=== PATIENT | female | born 1960 | race Caucasian/White ===

== ENCOUNTER 2019-04-30 09:40 | Emergency (ER) | payer MEDICAID ==
[~2019-04-30] VITALS: Ht 165.1 cm; Wt 118.0 kg
[2019-04-30] MEDS ORDERED: METOCLOPRAMIDE HCL 10MG/2ML VIAL IM ONE (11:00)
[2019-04-30] MEDS ORDERED: ACETAMINOPHEN 325MG TABLET PO ONE (11:00)
[2019-04-30 11:07] LABS: BASOPHILS % 0.8 % (0.0-2.0); EOSINOPHILS % 1.8 % (0.0-5.0); HEMATOCRIT. 42.7 % (36.0-48.0); HEMOGLOBIN. 14.7 g/dL (12.0-16.0); LYMPHOCYTES % 15.2 % (20.0-50.0); MEAN CORPUSCULAR VOLUME 95.7 fL (81.0-99.0); MEAN PLATELET VOLUME 8.4 fl (7.4-10.4); MONOCYTES % 7.1 % (2.0-8.0); NEUTROPHILS % 75.1 % (40.0-76.0); PLATELET 277 x1000/uL (130-400); RED BLOOD CELL COUNT 4.46 mill/uL (4.2-5.4); RED CELL DISTRIBUTION WIDTH 13.8 % (11.6-14.6)
[2019-04-30 11:14] LABS: CHLORIDE 108 mEq/L (98-107)
[2019-04-30 12:56] VITALS: BP 155/80
== END 2019-04-30 13:00 | disposition home or self-care (01) ==
LOC: ER 10:28
DX: R42 Dizziness and giddiness (principal); R51 Headache; R53.1 Weakness; I10 Essential (primary) hypertension; G40.909 Epilepsy, unspecified, not intractable, without status epilepticus
CPT/HCPCS: 36415; 80053; 80185; 85025; 93005; 96372; 99284; J2765

== ENCOUNTER 2024-10-16 07:10 | Emergency (ER) | payer BC, MEDICAID ==
[~2024-10-16] VITALS: Ht 162.6 cm; Wt 90.0 kg
[~2024-10-16 07:10] MED LIST: ASCO500T20 PO; ASPI-1406 PO; ATOR20TA PO; CEPH500T MT; PHEN100C4 PO
[2024-10-16 07:15] VITALS: O2SAT 100
[2024-10-16 08:00] LABS: BASOPHILS % 1.1 % (0.0-2.0); EOSINOPHILS % 3.9 % (0.0-5.0); HEMATOCRIT. 41.2 % (36.0-48.0); HEMOGLOBIN. 14.0 g/dL (12.0-16.0); LYMPHOCYTES % 28.4 % (20.0-50.0); MEAN PLATELET VOLUME 9.5 fl (7.4-10.4); MONOCYTES % 12.1 % (2.0-8.0); NEUTROPHILS % 54.5 % (40.0-76.0); PLATELET 216 x1000/uL (130-400); RED BLOOD CELL COUNT 4.34 mill/uL (4.2-5.4); RED CELL DISTRIBUTION WIDTH 13.9 % (11.6-14.6)
[2024-10-16 08:06] LABS: CREATININE 0.6 mg/dL (0.6-1.0)
[2024-10-16 08:07] LABS: ETHANOL BLOOD < 10 mg/dL (<10); PHENYTOIN 21.2 ug/mL (10-20); UREA NITROGEN BLOOD 19 mg/dL (9-23)
[2024-10-16 09:49] LABS: CLARITY URINE CLEAR (CLEAR); COLOR URINE YELLOW (YELLOW); GLUCOSE URINE NEGATIVE (NEGATIVE); KETONES URINE NEGATIVE (NEGATIVE); LEUKOCYTE ESTERASE URINE 1+ (NEGATIVE); NITRITE URINE POSITIVE (NEGATIVE); OCCULT BLOOD URINE TRACE (NEGATIVE); PH URINE 6.0 (4.5-8.0); PROTEIN URINE TRACE (NEGATIVE); SPECIFIC GRAVITY URINE 1.022 (1.005-1.030); UROBILINOGEN URINE 0.2 E.U./dL (0.2-1.0)
[2024-10-16] MEDS ORDERED: NITR100C PO (10:02)
[2024-10-16 10:04] LABS: *AMPHETAMINES SCREEN URINE NEGATIVE (NEGATIVE); *BARBITURATES SCREEN URINE NEGATIVE (NEGATIVE); *BENZODIAZEPINES SCREEN URINE NEGATIVE (NEGATIVE); *COCAINE SCREEN URINE NEGATIVE (NEGATIVE); CANNABINOID URINE SCREEN NEGATIVE (NEGATIVE); METHADONE URINE SCREEN NEGATIVE (NEGATIVE); OPIATES URINE SCREEN NEGATIVE (NEGATIVE); PHENCYCLIDINE URINE SCREEN NEGATIVE (NEGATIVE)
[2024-10-16 10:05] LABS: ECSTASY MDMA SCREEN URINE NEGATIVE (NEGATIVE)
[2024-10-16 10:35] VITALS: BP 153/76; PULSE 61; RESP 19; TEMP 36.7; O2SAT 100
[2024-10-16 10:54] LABS: SQUAMOUS EPITHELIAL CELL URINE 1+ /lpf (RARE/1+)
[2024-10-16 10:55] LABS: BACTERIA URINE 4+
[2024-10-16 10:56] LABS: WBC URINE 25-50 /hpf (0-2)
[2024-10-16 10:57] LABS: RBC URINE NONE SEEN /hpf (0-2)
== END 2024-10-16 10:39 | disposition home or self-care (01) ==
LOC: ER 07:42
DX: R56.9 Unspecified convulsions (principal); N39.0 Urinary tract infection, site not specified; E78.00 Pure hypercholesterolemia, unspecified; I10 Essential (primary) hypertension; Z79.82 Long term (current) use of aspirin; Z79.899 Other long term (current) drug therapy; Z86.73 Personal history of transient ischemic attack (TIA), and cerebral infarction without residual deficits; Z86.79 Personal history of other diseases of the circulatory system
CPT/HCPCS: 36415; 80048; 80185; 80305; 80320; 81003; 85025; 87077; 87186; 93005; 99284; G0480